=== PATIENT | male | born 1970 | race Caucasian/White ===

== ENCOUNTER → 2019-04-17 | Outpatient (CLI) | payer OTHER | END | disposition home or self-care (01) | LOC: US 12:19 | DX: Z87.442 Personal history of urinary calculi (principal) ==

== ENCOUNTER → 2019-05-29 | Outpatient (CLI) | payer OTHER ==
[2019-05-29 08:58] LABS: BILIRUBIN NEGATIVE (NEGATIVE); BLOOD NEGATIVE (NEGATIVE); CLARITY CLEAR (CLEAR); COLOR YELLOW (YELLOW); GLUCOSE NEGATIVE (NEGATIVE); KETONE NEGATIVE (NEGATIVE); LEUKO ESTERASE NEGATIVE (NEGATIVE); NITRITE NEGATIVE (NEGATIVE); PH 5.5 (5.0-9.0); SPECIFIC GRAVITY >= 1.030 (1.005-1.030); UROBILINOGEN 0.2 E.U./dl (0.2-1.0)
[2019-05-29 09:13] LABS: MUCOUS 1+
[2019-05-29 09:34] LABS: ALBUMIN 3.9 gm/dl (3.1-4.5); BUN 23 mg/dl (7-24); CHLORIDE 111 mmol/L (98-107); SODIUM 142 mmol/L (136-145)
[2019-05-29 09:35] LABS: CREATININE 1.14 mg/dL (0.70-1.30); PHOSPHOROUS 2.3 mg/dL (2.5-4.9)
[2019-05-29 09:48] LABS: PTH INTACT 63.3 pg/mL (18.5-88.0); VITAMIN D, 25-HYDROXY 29.6 ng/mL (30-100)
== END | disposition home or self-care (01) ==
LOC: CT 05-28 08:00 → LAB 07:55 → CT 08:00
PROVIDERS: Internal Medicine Nephrology
DX: N20.0 Calculus of kidney (principal); Z87.442 Personal history of urinary calculi

== ENCOUNTER 2023-06-27 07:21 | Emergency (ER) | payer OTHER ==
[~2023-06-27] VITALS: Ht 177.8 cm; Wt 136.5 kg
[2023-06-27 08:09] LABS: BASO % 0.5 % (0.0-1.0); EOS # 0.3 10*3/uL (0.0-0.4); HEMATOCRIT 44.7 % (42.0-52.0); LYMPH # 1.4 10*3/uL (1.3-4.4); LYMPH % 23.5 % (27.0-41.0); MEAN CELL VOLUME 87.8 fl (80.0-94.0); MEAN CORPUSCULAR HGB 28.9 pg (27.0-31.0); MEAN CORPUSCULAR HGB CONC 32.9 g/dl (33.0-37.0); MEAN PLATELET VOLUME 10.3 fl (9.6-12.3); MONO # 0.5 10*3/uL (0.1-1.0); MONO % 8.9 % (3.0-9.0); NEUT # 3.6 10*3/uL (2.3-7.9); NEUT % 61.8 % (47.0-73.0); PLATELET COUNT AUTOMATED 216 10*3/uL (130-400); RED BLOOD COUNT 5.09 10*6/uL (4.50-5.90); RED CELL DISTRI WIDTH 12.9 % (0-14.5); WHITE BLOOD COUNT 5.8 10*3/uL (4.8-10.8)
[2023-06-27 08:22] LABS: ACT PARTIAL THROMBO TIME 26.5 SECONDS (20.0-32.1); INTERNATIONAL NORM RATIO 0.9 (2.0-3.5)
[2023-06-27 08:41] LABS: POTASSIUM 4.6 mmol/L (3.4-5.1); TOTAL PROTEIN 7.5 gm/dL (6.0-8.0)
[2023-06-27] MEDS ORDERED: ONDANSETRON4 MG SL (10:35)
[2023-06-27] MEDS ORDERED: FLOMAX0.4 MG PO (10:35)
[2023-06-27] MEDS ORDERED: HYDROCODONE-AC1 EAC1 PO (10:35)
== END 2023-06-27 11:19 | disposition home or self-care (01) ==
LOC: ED 07:21
PROVIDERS: Emergency Medicine
DX: N20.1 Calculus of ureter (principal); Z88.6 Allergy status to analgesic agent; Z88.5 Allergy status to narcotic agent

== ENCOUNTER → 2023-07-09 | Outpatient (CLI) | payer OTHER ==
[~2023-07-09] MED LIST: FLOMAX0.4 MG PO; HYDROCODONE-AC1 EAC1 PO; ONDANSETRON4 MG SL
== END | disposition home or self-care (01) ==
LOC: US 16:00
PROVIDERS: ATTEND Urology
DX: N20.0 Calculus of kidney (principal)